=== PATIENT | female | born 1960 | race African-American/Black ===

== ENCOUNTER 2018-12-30 11:00 | Emergency (ER) | payer MEDICAID, OTHER ==
[~2018-12-30] VITALS: Ht 162.6 cm; Wt 100.0 kg
[2018-12-30] MEDS ORDERED: DIGO-44 PO (11:10)
[2018-12-30] MEDS ORDERED: LISI-661 PO (11:10)
[2018-12-30] MEDS ORDERED: FURO20 PO (11:10)
[2018-12-30] MEDS ORDERED: KETOROLAC TROMETHAMINE 60 MG/2 ML VIAL IM ONE (12:45)
[2018-12-30] MEDS ORDERED: METHOCARBAMOL 500 MG TABLET PO ONE (12:45)
[2018-12-30 13:49] VITALS: BP 125/77
== END 2018-12-30 14:23 | disposition home or self-care (01) ==
LOC: EMS 11:00
DX: S13.4XXA Sprain of ligaments of cervical spine, initial encounter (principal); S50.01XA Contusion of right elbow, initial encounter; I11.0 Hypertensive heart disease with heart failure; I50.9 Heart failure, unspecified; G89.29 Other chronic pain; Z79.899 Other long term (current) drug therapy; V49.9XXA Car occupant (driver) (passenger) injured in unspecified traffic accident, initial encounter; Y93.89 Activity, other specified; Y92.89 Other specified places as the place of occurrence of the external cause; Y99.8 Other external cause status
CPT/HCPCS: 73080; 96372; 99283; J1885